=== PATIENT | male | born 1940 | race Caucasian/White ===

== ENCOUNTER → 2017-01-13 | Outpatient (CLI) | payer MEDICARE ==
[2017-01-13 11:12] LABS: CH 32.8; CHCM 34.9; HDW 2.62; HGB 15.5 gm/dL (13.0-17.5); MCH 32.6 pg (25.0-35.0); MCHC 34.5 g/dL (31.0-37.0); MCV 94.5 fL (80.0-100.0); Mean Platelet Volume 7.6; RBC 4.76 m/uL (4.30-5.90); RDW 14.1 % (11.5-15.5); WBC 6.9 k/uL (3.8-10.6)
[2017-01-13 12:44] LABS: Erythrocyte Sedimentation Rate 6 mm/hr (0-15)
[2017-01-17 13:37] LABS: Lysozyme, Serum or Body Fluid 6.6 mcg/mL (5.0-11.0)
== END ==
LOC: LABWHC1 10:46
PROVIDERS: ATTEND Ophthalmology
DX: H15.011 Anterior scleritis, right eye (principal)
CPT/HCPCS: 36415; 82164; 85027; 85549; 85652; 86140

== ENCOUNTER 2017-01-26 17:49 | Emergency (ER) | payer MEDICARE ==
[2017-01-26 18:00] VITALS: BP 173/85; PULSE 80; RESP 20; TEMP 98.4
[2017-01-26] MEDS ORDERED: DIPH,PERTUS(ACELL)TETVAC-LF 0.5 ML VIAL IM ONE (19:04)
[2017-01-26] MEDS ORDERED: AMOXIC-POT CLAV 875MG STARTER 2 EACH TABLET PO STA (19:04)
--- NOTE | 2017-01-26 19:09 | ED ---
Animal Bite HPI - General Chief Complaint: Animal Bite Stated Complaint: Dog Bite Time Seen by Provider: 01/26/17 18:40 Source: patient, RN notes reviewed, old records reviewed Mode of arrival: ambulatory Limitations: no limitations - History of Present Illness Initial Comments: This is a 76-year-old male presenting to the emergency department with chief complaint of a dog bite of his own dog in the right hand. Patient reports it's taken the dog to get vaccinations and the dog was upset and bit him. Patient reports that he has full range of motion of his hand. They state that he had this happen similarly and he had a severe hand infection when he had to be admitted to the hospital for 5 days. Patient reports at that time he waited before being seen. Patient states he does not know the status of his tetanus vaccination. He denies any fever or chills or other associated symptoms. Patient reports he does have full range of motion of the hand. - Related Data Previous Rx's Medication Instructions Recorded Amoxic-Pot Clav 875-125Mg 1 tab PO Q12HR #20 tablet 01/26/17 [Augmentin 875-125] Allergies Allergy/AdvReac Type Severity Reaction Status Date / Time No Known Allergies Allergy Verified 01/26/17 18:00 Review of Systems ROS Statement: Those systems with pertinent positive or pertinent negative responses have been documented in the HPI. ROS Other: All systems not noted in ROS Statement are negative. Past Medical History Past Medical History: No Reported History History of Any Multi-Drug Resistant Organisms: None Reported Past Surgical History: No Surgical Hx Reported Smoking Status: Never smoker Past Alcohol Use History: Rare Past Drug Use History: None Reported General Exam - General Exam Comments Initial Comments: 76-year-old male. No acute distress. Limitations: no limitations General appearance: alert, in no apparent distress Head exam: Present: atraumatic, normocephalic, normal inspection Eye exam: Present: normal appearance, PERRL, EOMI. Absent: scleral icterus, conjunctival injection, periorbital swelling ENT exam: Present: normal exam, mucous membranes moist Neck exam: Present: normal inspection. Absent: tenderness, meningismus, lymphadenopathy Respiratory exam: Present: normal lung sounds bilaterally. Absent: respiratory distress, wheezes, rales, rhonchi, stridor Cardiovascular Exam: Present: regular rate, normal rhythm, normal heart sounds. Absent: systolic murmur, diastolic murmur, rubs, gallop, clicks GI/Abdominal exam: Present: soft, normal bowel sounds. Absent: distended, tenderness, guarding, rebound, rigid Extremities exam: Present: normal inspection, full ROM, normal capillary refill , other (2 cm laceration over the palm of the right hand over the fifth metacarpal.). Absent: tenderness, pedal edema, joint swelling, calf tenderness Back exam: Present: normal inspection Neurological exam: Present: alert, oriented X3, CN II-XII intact Psychiatric exam: Present: normal affect, normal mood Skin exam: Present: warm, dry, intact, normal color. Absent: rash Course Vital Signs 01/26/17 01/26/17 17:57 19:47 Temperature 98.4 F 98.4 F Pulse Rate 80 80 Respiratory 20 20 Rate Blood Pressure 173/85 173/85 O2 Sat by Pulse 98 98 Oximetry Procedures - Laceration Laceration #1 Site: hand (right palm) Size (cm): 1 Description: linear Depth: simple, single layer Anesthetic Used: lidocaine 1% Anesthesia Technique: local infiltration Amount (mls): 3 Pre-repair: wound explored, irrigated extensively Type of Sutures: nylon Size of Sutures: 5-0 Number of Sutures: 2 Technique: simple, interrupted Patient Tolerated Procedure: well, no complications Medical Decision Making - Medical Decision Making This is a 76-year-old male presenting to the emergency department with chief complaint of a dog bite of his own dog in the right hand. Patient reports it's taken the dog to get vaccinations and the dog was upset and bit him. Patient reports that he has full range of motion of his hand. They state that he had this happen similarly and he had a severe hand infection when he had to be admitted to the hospital for 5 days. Patient reports at that time he waited before being seen. Patient states he does not know the status of his tetanus vaccination. He denies any fever or chills or other associated symptoms. Patient hand was soaked with normal saline, Betadine and soap. Afterwards 2 L of normal saline was used to irrigate the wound. Patient did receive 2 loosely tied superficial sutures to keep the wound closed. There were evidence of fatty tissue exposure and the laceration. Patient was given a bacitracin and acrylics stressing. Patient was given updated tetanus shot and Augmentin starter pack. Discussed the importance of taking the antibiotic. Patient understands to monitor for any signs of infection and swelling and drainage. Patient agrees to treatment plan will comply. Return parameters were discussed. Disposition Clinical Impression: Dog bite of right hand Disposition: HOME SELF-CARE Condition: Good Instructions: Animal Bite (ED) Additional Instructions: Patient denies to apply ice over the area. Monitor for any signs of infection including redness swelling and drainage. Patient needs to return to have sutures removed in approximately 7 days. Please leave wound covered for the first 24-48 hours and then leave open to air after that time. Please use clean soap and water to clean the suture area to prevent scabbing over the top of your sutures. Please watch for any signs of infection which may include but not limited to increased pain, swelling, redness, fever or chills. Please return to the emergency room if any signs of infection do occur. Please return to the emergency room for any other concerns or complications. Prescriptions: Amoxic-Pot Clav 875-125Mg [Augmentin 875-125] 1 tab PO Q12HR #20 tablet Referrals: Isaac Quesada DO [Primary Care Provider] - 1-2 days Time of Disposition: 19:33
== END 2017-01-26 19:47 | disposition home or self-care (01) ==
LOC: EC 17:49
DX: S61.451A Open bite of right hand, initial encounter (principal); Z23 Encounter for immunization; W54.0XXA Bitten by dog, initial encounter
CPT/HCPCS: 12001; 90471; 90715; 99283

== ENCOUNTER 2018-12-04 20:47 | Inpatient (IN) | payer MEDICARE ==
--- NOTE | 2018-12-04 21:05 | ED ---
Chest Pain HPI - General Chief Complaint: Chest Pain Stated Complaint: Chest pains Time Seen by Provider: 12/04/18 21:05 Source: patient Mode of arrival: wheelchair Limitations: no limitations - History of Present Illness Initial Comments: Corey is a pleasant 78-year-old gentleman presents to the emergency department today for evaluation of left I did pressure-like chest pain. Patient has no cardiac history no history of hypertension hyperlipidemia or smoking. 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 Patient reports that this evening on his way home from work he did eat [employer] and then returned home and ate a little bit of soup with his . He reports that shortly after he began having a pressure-like pain in his left chest. Initially thought it was indigestion however the pain persisted and became quite uncomfortable given his advanced age he he decided to come to the emergency department for evaluation. Patient denies any associated lightheadedness diaphoresis or shortness of breath. - Related Data Home Medications Medication Instructions Recorded Confirmed Hydrochlorothiazide [Hydrodiuril] 12.5 mg PO DAILY 12/04/18 12/05/18 Allergies Allergy/AdvReac Type Severity Reaction Status Date / Time No Known Allergies Allergy Verified 12/05/18 01:42 Review of Systems ROS Statement: Those systems with pertinent positive or pertinent negative responses have been documented in the HPI. ROS Other: All systems not noted in ROS Statement are negative. EKG Findings - EKG Comments: EKG Findings:: EKG was obtained at 2058, rate is 82 rhythm is sinus there is a 40 axis, there are normal intervals, LA is 172 QRS is 104 QTc is 453 there are no acute ST elevations or depressions there is no evidence of acute ischemia or infarction. Past Medical History Past Medical History: No Reported History History of Any Multi-Drug Resistant Organisms: None Reported Past Surgical History: No Surgical Hx Reported Past Psychological History: No Psychological Hx Reported Smoking Status: Never smoker Past Alcohol Use History: Rare Past Drug Use History: None Reported - Past Family History Mother Family Medical History: Diabetes Mellitus Father Family Medical History: Congestive Heart Failure (CHF) General Exam - General Exam Comments Initial Comments: Physical Exam GENERAL: Patient is well-developed and well-nourished. Patient is nontoxic and well- hydrated and is in no distress. HENT: Normocephalic, Atraumatic. EYES: PERRL, EOMI PULMONARY: Unlabored respirations. No audible rales rhonchi or wheezing was noted. CARDIOVASCULAR: There is a regular rate and rhythm without any murmurs gallops or rubs. Warm and well perfused extremities, radial pulses present and equal bilaterally ABDOMEN: Soft and nontender with normal bowel sounds. SKIN: Skin is clear with no lesions or rashes and otherwise unremarkable. : Deferred NEUROLOGIC: Patient is alert and oriented x3. Moving all extremities spontaneously MUSCULOSKELETAL: Normal extremities with adequate strength and full range of motion. No lower extremity swelling or edema. No calf tenderness. PSYCHIATRIC: Normal psychiatric evaluation. Limitations: no limitations Limitations: no limitations Course Vital Signs 12/04/18 12/04/18 12/05/18 20:51 23:04 00:35 Temperature 98.3 F Pulse Rate 82 77 86 Respiratory 20 16 16 Rate Blood Pressure 157/89 145/91 150/78 O2 Sat by Pulse 98 96 98 Oximetry 12/05/18 01:16 Temperature 98.2 F Pulse Rate 80 Respiratory 16 Rate Blood Pressure 148/89 O2 Sat by Pulse 98 Oximetry Chest Pain MDM - MDM The patient was seen and evaluated history is obtained from the patient review of medical record This is an 78-year-old male presenting with pressure-like chest pain with no cardiac history Labs and imaging were obtained An EKG is nonischemic chest x-ray no acute findings labs were normal there is no elevation of troponin. HEART Score 4 Plan to admit the patient for further observation of chest pain and evaluation by cardiology. Patient were updated and are agreeable. Admission orders were placed. Disposition Clinical Impression: Chest pain Disposition: ADMITTED IP TO THIS HOSP Condition: Stable
[2018-12-04 21:45] LABS: Basophils # (A) 0.1 k/uL (0-0.2); Basophils % (A) 1 %; Eosinophils # (A) 0.1 k/uL (0-0.7); Eosinophils % (A) 2 %; HCT 39.1 % (39.0-53.0); HGB 13.8 gm/dL (13.0-17.5); Lymphocytes # (A) 1.3 k/uL (1.0-4.8); Lymphocytes % (A) 21 %; MCH 32.5 pg (25.0-35.0); MCHC 35.3 g/dL (31.0-37.0); MCV 92.3 fL (80.0-100.0); Mean Platelet Volume 7.8; Monocytes # (A) 0.5 k/uL (0-1.0); Monocytes % (A) 8 %; Neutrophils % (A) 65 %; Platelet Count 201 k/uL (150-450); RBC 4.24 m/uL (4.30-5.90); RDW 13.6 % (11.5-15.5); WBC 6.1 k/uL (3.8-10.6)
[2018-12-04 21:55] LABS: ALT 37 U/L (21-72); AST 27 U/L (17-59); Albumin 3.6 g/dL (3.5-5.0); Alkaline Phosphatase 78 U/L (38-126); Anion Gap 7 mmol/L; Blood Urea Nitrogen 15 mg/dL (9-20); Calcium 9.1 mg/dL (8.4-10.2); Carbon Dioxide 25 mmol/L (22-30); Chloride 109 mmol/L (98-107); Glucose 124 mg/dL (74-99); Magnesium 1.8 mg/dL (1.6-2.3); Potassium 3.5 mmol/L (3.5-5.1); Sodium 141 mmol/L (137-145); Total Bilirubin 0.7 mg/dL (0.2-1.3); Total Protein 5.9 g/dL (6.3-8.2)
[2018-12-04 22:00] LABS: Prothrombin Time 10.9 sec (9.0-12.0)
[2018-12-04 22:01] LABS: Partial Thromboplastin Time 27.8 sec (22.0-30.0)
--- NOTE | 2018-12-04 22:12 | XR ---
EXAMINATION TYPE: XR chest 2V DATE OF EXAM: 12/04/2018 COMPARISON: 05/16/2015 HISTORY: 78-year-old male with chest pain TECHNIQUE: PA and lateral views FINDINGS: The heart is normal size. Aorta and pulmonary vasculature within normal limits. Mild interstitial pro minence has a chronic appearance. No consolidation or pleural effusion. IMPRESSION: Chronic changes without acute cardiopulmonary process.
[2018-12-04] MEDS ORDERED: NITROGLYCERIN SL TABS 0.4 MG TAB SUBLINGUAL PRN (22:49)
[2018-12-05] MEDS ORDERED: MAG HYDROX/AL HYDROX/SIMETH 30 ML, HYOSCYAMINE ELIXIR 10 ML, CIMETIDINE HCL 300 MG, LID... PO STA ×4 (00:21)
[2018-12-05 01:20] LABS: Cholesterol 135 mg/dL (<200); HDL Cholesterol 32 mg/dL (40-60); LDL Cholesterol,Calculated 74 mg/dL (0-99); Triglycerides 144 mg/dL (<150)
[2018-12-05] MEDS ORDERED: ALPRAZolam 0.25 MG TAB PO PRN (08:11)
[2018-12-05] MEDS ORDERED: NITROGLYCERIN SL TABS 0.4 MG TAB SUBLINGUAL PRN (08:11)
[2018-12-05] MEDS ORDERED: ALPRAZolam 0.5 MG TAB PO PRN (08:11)
[2018-12-05] MEDS ORDERED: SODIUM CHLORIDE 0.9% 1,000 ML in EMPTY BAG 1 BAG IV ONE (08:11)
[2018-12-05] MEDS: ASPIRIN 325 MG TAB PO SCH ×2 (08:23→08:43)
[2018-12-05] MEDS: METOPROLOL TARTRATE 12.5 MG TAB PO SCH ×2 (08:43→20:05)
[2018-12-05] MEDS: ISOSORBIDE MONONITRATE ER 30 MG TAB.ER.24H PO SCH (08:43)
--- NOTE | 2018-12-05 12:41 | CONS ---
CONSULTATION HISTORY: Corey Rodrigues is an 78-year-old gentleman with no significant past medical history that presented to hospital complaining of chest pain. His history is significant for hypertension. He describes it as a precordial chest pressure, moderate to severe intensity at rest, unrelated to exertion, and associated with diaphoresis. This started after he had a meal. Normally has chest discomfort that is relieved with burping, this time it was not. It was associated with some diaphoresis and mild shortness of breath. He came to the ER. The pain lasted for about half an hour and then resolved. EKG did not reveal ischemic changes and cardiac enzymes have been negative. At the time of my evaluation this morning, he is pain-free and hemodynamically stable. 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 PAST MEDICAL HISTORY: Significant for hypertension. MEDICATIONS: Hydrochlorothiazide. ALLERGIES: No known drug allergies. FAMILY HISTORY: Negative for premature coronary artery disease. SOCIAL HISTORY: Negative for current smoking, ETOH abuse or drug abuse. REVIEW OF SYSTEMS: HEENT: Unremarkable. CARDIAC: As described above. RESPIRATORY: Negative. GI: Negative. : Negative. ALLERGY/IMMUNOLOGY/SKIN: Unremarkable. MUSCULOSKELETAL: Significant for arthritis. PSYCHOSOCIAL: Negative. ENDOCRINE: Unremarkable. HEMATOLOGIC: Negative. CONSTITUTIONAL: Negative. ONCOLOGICAL: Negative. The rest of the systems review is not relevant. EXAM: Comfortable at rest. Vital signs are stable. There is no jugular venous distention. Carotid upstroke is normal. There is no bruit. Chest exam reveals good air entry bilaterally. Heart exam reveals first and second heart sounds. No gallop. No murmur. No rub. Abdomen is soft, nontender. Exam of extremities did not reveal any edema. Peripheral pulses are felt. LABS: EKG shows sinus rhythm, normal axis, normal intervals. His hemoglobin is 13.8, platelet count is 201,000. Creatinine is 0.7. Two sets of troponins are negative. LDL cholesterol is 74. ASSESSMENT: Unstable angina. PLAN: I advised the patient to undergo cardiac catheterization for further evaluation. He had been explained of risks, benefits and alternatives, understood and accepted. MMODL / IJN: [id number] /
--- NOTE | 2018-12-05 14:09 | P.HPIM ---
History of Present Illness H&P Date: 12/05/18 Chief Complaint: chest pain 78-year-old male patient with history of hypertension presented to ED with complaint of chest pain which was mainly precordial chest pressure with a ssociated diaphoresis and shortness of breath; Patient relates that he was resting at the time pain started and had just finished eating his meal. According to patient normally when he gets chest discomfort it is usually relieved by burping; patient decided to come to ED because pain persisted after half hour Patient's workup in ED with an EKG was unremarkable; chest x-ray was negative for any acute process; serum troponin remained in normal range; patient has a heart score of 4 and is admitted for observation and further cardiology evaluation Review of Systems Constitutional: Denies chills, Denies fever Eyes: denies blurred vision, denies loss of vision Ears, nose, mouth and throat: Denies headache Cardiovascular: Reports chest pain, Reports shortness of breath Respiratory: Denies cough with sputum Gastrointestinal: Denies abdominal pain, Denies nausea, Denies vomiting Neurological: Denies confusion, Denies gait dysfunction Endocrine: Denies cold intolerance, Denies heat intolerance Past Medical History Past Medical History: No Reported History History of Any Multi-Drug Resistant Organisms: None Reported Past Surgical History: No Surgical Hx Reported Past Psychological History: No Psychological Hx Reported Smoking Status: Never smoker Past Alcohol Use History: Rare Past Drug Use History: None Reported - Past Family History Mother Family Medical History: Diabetes Mellitus Father Family Medical History: Congestive Heart Failure (CHF) Medications and Allergies Home Medications Medication Instructions Recorded Confirmed Type Hydrochlorothiazide [Hydrodiuril] 12.5 mg PO DAILY 12/04/18 12/05/18 History Allergies Allergy/AdvReac Type Severity Reaction Status Date / Time No Known Allergies Allergy Verified 12/05/18 01:42 Physical Exam Vitals: Vital Signs Temp Pulse Pulse Resp BP BP Pulse Ox 12/05/18 08:00 98.1 F 79 18 123/70 96 12/05/18 02:45 16 12/05/18 01:38 97.5 F L 72 16 138/77 97 12/05/18 01:16 98.2 F 80 16 148/89 98 12/05/18 00:35 86 16 150/78 98 12/04/18 23:04 77 16 145/91 96 12/04/18 20:51 98.3 F 82 20 157/89 98 Intake and Output 12/04/18 12/05/18 12/05/18 22:59 06:59 14:59 Other: Voiding Method Toilet # Voids 1 Weight 86.183 kg - Constitutional General appearance: Present: average body habitus, cooperative, no acute distress - EENT Eyes: Present: anicteric sclerae, EOMI, PERRLA, normal appearance ENT: Present: hearing grossly normal, normal oropharynx Ears: bilateral: normal - Neck Neck: Present: normal ROM. Absent: lymphadenopathy, rigidity, thyromegaly Carotids: negative: bruit present Thyroid: bilateral: normal size, negative: enlarged, nodule - Respiratory Respiratory: bilateral: CTA, negative: rales, rhonchi, wheezing - Cardiovascular Rhythm: regular Heart sounds: normal: S1, S2 Abnormal Heart Sounds: Absent: systolic murmur, diastolic murmur - Gastrointestinal General gastrointestinal: Present: normal bowel sounds, soft. Absent: distended, organomegaly, tenderness - Genitourinary Genitourinary Comment(s): deferred - Integumentary Integumentary: Present: normal turgor. Absent: jaundiced, rash, ulcer - Neurologic Neurologic: Present: CNII-XII intact. Absent: focal deficits - Musculoskeletal Musculoskeletal: Present: gait normal, strength equal bilaterally - Psychiatric Psychiatric: Present: A&O x's 3, appropriate affect, intact judgment & insight Results CBC & Chem 7: 12/04/18 21:00 12/04/18 21:00 Labs: Abnormal Lab Results - Last 24 Hours (Table) 12/04/18 12/04/18 12/04/18 Range/Units 21:00 21:00 21:00 RBC 4.24 L (4.30-5.90) m/uL Chloride 109 H (98-107) mmol/L Glucose 124 H (74-99) mg/dL Total Protein 5.9 L (6.3-8.2) g/dL HDL Cholesterol 32 L (40-60) mg/dL Thrombosis Risk Factor Assmnt - Choose All That Apply Each Risk Factor Represents 3 Points: Age 75 years or older Thrombosis Risk Factor Assessment Total Risk Factor Score: 3 Thrombosis Risk Factor Assessment Level: Moderate Risk Assessment and Plan Assessment: 1. Chest pain rule out acute coronary syndrome/unstable angina - Patient will be admitted to cardiac telemetry for close observation - We will monitor EKG and trend troponin - start patient on aspirin, beta blockers and sublingual nitroglycerin - ordered a 2-D echocardiogram for left ventricular function - Consult cardiology for further recommendations 2. Uncontrolled hypertension - Patient takes hydrochlorothiazide 12.5 mg daily at home; patient is started on beta blockers for unstable angina - We will hold off on hydrochlorothiazide and monitor blood pressure closely and escalate beta preethi therapy if blood pressure remains elevated 3. DVT prophylaxis; SCDs CODE STATUS; full code Time with Patient: Greater than 30
[2018-12-06] MEDS ORDERED: ATORVASTATIN 80 MG TAB PO ONE (06:00)
[2018-12-06] MEDS ORDERED: ASPIRIN 325 MG TAB PO ONE (06:00)
[2018-12-06] MEDS: ISOSORBIDE MONONITRATE ER 30 MG TAB.ER.24H PO SCH (06:26)
[2018-12-06] MEDS: METOPROLOL TARTRATE 12.5 MG TAB PO SCH (06:27)
[2018-12-06] MEDS ORDERED: HYDROcodone/APAP 5-325MG 1 EACH TAB PO PRN ×2 (06:36→21:00)
[2018-12-06 07:08] LABS: Basophils % (A) 1 %; Eosinophils # (A) 0.1 k/uL (0-0.7); Eosinophils % (A) 2 %; HCT 35.5 % (39.0-53.0); HGB 12.2 gm/dL (13.0-17.5); Lymphocytes # (A) 1.6 k/uL (1.0-4.8); Lymphocytes % (A) 20 %; MCH 32.2 pg (25.0-35.0); MCHC 34.5 g/dL (31.0-37.0); MCV 93.3 fL (80.0-100.0); Monocytes # (A) 0.6 k/uL (0-1.0); Monocytes % (A) 7 %; Neutrophils # (A) 5.4 k/uL (1.3-7.7); Neutrophils % (A) 68 %; Platelet Count 186 k/uL (150-450); RDW 13.8 % (11.5-15.5); WBC 7.9 k/uL (3.8-10.6)
[2018-12-06 07:28] LABS: Anion Gap 4 mmol/L; Blood Urea Nitrogen 20 mg/dL (9-20); Calcium 8.2 mg/dL (8.4-10.2); Carbon Dioxide 28 mmol/L (22-30); Chloride 108 mmol/L (98-107); Glucose 95 mg/dL (74-99); Potassium 3.7 mmol/L (3.5-5.1); Sodium 140 mmol/L (137-145)
[2018-12-06] MEDS ORDERED: HYDROCHLOROTHIAZIDE 12.5 MG CAP PO SCH (09:00)
[2018-12-06] MEDS ORDERED: LIDOCAINE 1% INJ 10MG/ML (20 ML MDV) SQ ONE (09:17)
--- NOTE | 2018-12-06 09:58 | CC ---
CARDIAC CATHETERIZATION REPORT INDICATION: Unstable angina. PROCEDURE NOTE: After obtaining informed consent, left heart catheterization, coronary angiogram were performed via the right femoral artery using standard Maldonado catheters. Patient tolerated the procedure well without any obvious immediate complications. Patient received moderate conscious sedation. Total sedation time was 15 minutes. FINDINGS: 1. HEMODYNAMICS: Left ventricular end-diastolic pressure is 12 to 14 mm. There is no significant gradient across aortic valve. 2. LEFT VENTRICULOGRAM: Left ventriculogram is not performed. 3. ANGIOGRAPHIC DATA: Left Main Coronary Artery: Left main coronary artery is a normal-sized vessel and is free of stenosis. Divides into left anterior descending coronary artery and circumflex coronary artery. LAD shows a moderate area of stenosis in its midportion at its worst it seems to be a 70% eccentric lesion. Circumflex coronary artery and its branches is free of significant stenosis. Right coronary artery is a dominant vessel and is free of significant disease. 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 PLAN: Patient will undergo stent of the LAD. MMODL / IJN: [id number] /
[2018-12-06] MEDS ORDERED: IOPAMIDOL-370 100ML BTL INJ ONE ×2 (10:14→10:23)
[2018-12-06] MEDS ORDERED: BIVALIRUDIN BOLUS 250 MG/50 ML IV ONE (10:15)
[2018-12-06] MEDS ORDERED: BIVALIRUDIN 250 MG in SODIUM CHLORIDE 0.9% 50 ML IV ONE (10:16)
[2018-12-06] MEDS ORDERED: IV FLUID CONTINUATION 700 ML IV ONE (10:16)
[2018-12-06] MEDS ORDERED: niCARdipine Syringe (1,000 mcg/10 mL) INTRACORON ONE (10:20)
[2018-12-06] MEDS ORDERED: NITROGLYCERIN SL TABS 0.4 MG TAB SUBLINGUAL PRN (10:27)
[2018-12-06] MEDS ORDERED: ATROPINE SULFATE 0.1 MG/ML 10ML SYRINGE IV PRN (10:27)
[2018-12-06] MEDS ORDERED: ZOLPIDEM 5 MG TAB PO PRN (10:27)
[2018-12-06] MEDS ORDERED: RX INFO: IV CONTRAST WAS GIVEN 1 EACH MISC MISCELLANE PRN (10:27)
[2018-12-06] MEDS ORDERED: MAG HYDROX/AL HYDROX/SIMETH 30 ML CUP PO PRN (10:27)
[2018-12-06] MEDS ORDERED: TICAGRELOR 90 MG TAB PO ONE (10:38)
--- NOTE | 2018-12-06 11:58 | PTCA ---
PERCUTANEOUSTRANS CORORONARY ANGIOGRAPHY DATE OF SERVICE: 12/06/2018 PROCEDURE: PTCA and stenting of mid LAD with a drug-eluting stent. PERFORMED BY: Dr. Ryan Grace. Moderate conscious sedation time was 22 minutes. Patient was administered Versed. His oxygen saturation, hemodynamics and EKG were monitored closely. CLINICAL INFORMATION: Mr. Corey Rodrigues is a gentleman with a history of hypertension who came into the hospital with symptoms strongly suggestive of angina. He was seen and evaluated by Dr. Pena who performed a cardiac cath today which revealed a 70% mid LAD lesion. There was a long area of disease with sluggish flow and the disease started after the diagonal branch and ended at the third septal branch. It was a long lesion with sluggish flow, eccentric best seen in LEILA cranial projection and the narrowing was at least 70%. In view of his symptoms with sluggish flow and 70% lesion, he was advised PCI that was performed in the same setting. PROCEDURE NOTE: The existing 6-Greek introducer in the right femoral artery was used to perform the procedure. A JL3.5 guide catheter was used to cannulate the left coronary artery. A run-through wire was used to cross the lesion. Without predilatation a 23 mm long 3.5 caliber Xience stent was deployed at 13 atmospheres. Patient had chest pain and very subtle anterior ST prominence. Excellent angiographic result was achieved. He received 180 mg of Brilinta. He also received Angiomax bolus and infusion. Excellent result was achieved. Angio-Seal device was used to secure hemostasis and he was sent to the room in a stable condition. Results were discussed with the patient and family. MMODL / IJN: [id number] /
[2018-12-06] MEDS ORDERED: ONDANSETRON 4 MG/2 ML VIAL ONE (12:49)
--- NOTE | 2018-12-06 12:53 | ECHOF ---
Referral Reason:chest pain MEASUREMENTS -------- HEIGHT: 172.7 cm WEIGHT: 86.2 kg BP: 105/53 IVSd: 1.1 cm (0.6 - 1.1) LVIDd: 3.7 cm (3.9 - 5.3) LVPWd: 1.2 cm (0.6 - 1.1) IVSs: 1.7 cm LVIDs: 1.9 cm LVPWs: 2.0 cm Ao Diam: 3.9 cm (2.0 - 3.7) AV Cusp: 2.5 cm (1.5 - 2.6) LA Diam: 2.9 cm (2.7 - 3.8) MV EXCURSION: 20.130 mm (> 18.000) MV EF SLOPE: 106 mm/s (70 - 150) EPSS: 0.5 cm MV E Thomas: 0.59 m/s MV DecT: 270 ms MV A Thomas: 0.56 m/s MV E/A Ratio: 1.06 RAP: 5.00 mmHg RVSP: 8.99 mmHg FINDINGS -------- Sinus rhythm. This was a technically difficult study with suboptimal views. The left ventricular size is normal. There is mild concentric left ventricular hypertrophy. Overa ll left ventricular systolic function is low-normal with, an EF between 50 - 55 %. The right ventricle is normal in size. The left atrial size is normal. The right atrial size is normal. Lumason used Interatrial and interventricular septum intact. The aortic valve is trileaflet and appears structurally normal. There is trace mitral regurgitation. Trace tricuspid regurgitation present. The right ventricular systolic pressure, as measured by Dopp ler, is 8.99mmHg. Pulmonic valve appears structurally normal. The aortic root is mildy dilated at 3.9 cm IVC Not well visulized. There is no pericardial effusion. CONCLUSIONS -------- 1. Sinus rhythm. 2. This was a technically difficult study with suboptimal views. 3. The left ventricular size is normal. 4. There is mild concentric left ventricular hypertrophy. 5. Overall left ventricular systolic function is low-normal with, an EF between 50 - 55 %. 6. The right ventricle is normal in size. 7. The left atrial size is normal. 8. The right atrial size is normal. 9. Lumason used 10. Interatrial and interventricular septum intact. 11. The aortic valve is trileaflet and appears structurally normal. 12. There is trace mitral regurgitation. 13. Trace tricuspid regurgitation present. 14. The right ventricular systolic pressure, as measured by Doppler, is 8.99mmHg. 15. Pulmonic valve appears structurally normal. 16. The aortic root is mildy dilated at 3.9 cm. 17. IVC Not well visulized. 18. There is no pericardial effusion. HOSIERY REPAIRER: Chaya Coronado RDCS
[2018-12-06] MEDS: SODIUM CHLORIDE 0.9% 1,000 ML IV SCH ×2 (15:05→23:35)
[2018-12-06 15:27] VITALS: RESP 18
--- NOTE | 2018-12-06 19:44 | P.PN ---
Subjective 78-year-old male patient with history of hypertension presented to ED with complaint of chest pain which was mainly precordial chest pressure with a ssociated diaphoresis and shortness of breath; Patient relates that he was resting at the time pain started and had just finished eating his meal. According to patient normally when he gets chest discomfort it is usually relieved by burping; patient decided to come to ED because pain persisted after half hour Patient's workup in ED with an EKG was unremarkable; chest x-ray was negative for any acute process; serum troponin remained in normal range; patient has a heart score of 4 and is admitted for observation and further cardiology evaluation 12/06/2018 pt presents with s/s of CAD, he underwent cardiac cath with stent placement for LAD , as it was 70& occluded pt is seen in the extended stay unit , he was doing fine with no chest pain or dyspnea, , no change in urine or bowel habit , no nausea or vomiting , no abd pain , no feverc cardiology team are following the pt closely vitals stable and labs were reviewed Objective - Vital Signs Vital signs: Vital Signs Temp 96.9 F L 12/06/18 15:20 Pulse 63 12/06/18 15:20 Resp 18 12/06/18 15:20 BP 95/56 12/06/18 15:20 Pulse Ox 97 12/06/18 15:20 Intake & Output 12/06/18 12/06/18 12/07/18 06:59 18:59 06:59 Intake Total 1336.3 Output Total 500 Balance 836.3 Intake: IV 616.3 Sodium Chloride 0.9% 1, 0 000 ml @ 100 mls/hr IV . Q10H [facility] Rx#:[id number] Oral 720 Output: Urine 500 Other: Voiding Method Toilet Toilet # Voids 1 - Exam GENERAL: The patient is alert and oriented x3, not in any acute distress. Well developed, well nourished. HEENT: Pupils are round and equally reacting to light. EOMI. No scleral icterus. No conjunctival pallor. Normocephalic, atraumatic. No pharyngeal erythema. No thyromegaly. CARDIOVASCULAR: S1 and S2 present. No murmurs, rubs, or gallops. PULMONARY: Chest is clear to auscultation, no wheezing or crackles. ABDOMEN: Soft, nontender, nondistended, normoactive bowel sounds. No palpable organomegaly. MUSCULOSKELETAL: No joint swelling or deformity. EXTREMITIES: No cyanosis, clubbing, or pedal edema. NEUROLOGICAL: Gross neurological examination did not reveal any focal deficits. SKIN: No rashes. - Labs CBC & Chem 7: 12/06/18 06:34 12/06/18 06:34 Labs: Abnormal Lab Results - Last 24 Hours (Table) 12/06/18 12/06/18 Range/Units 06:34 06:34 RBC 3.80 L (4.30-5.90) m/uL Hgb 12.2 L (13.0-17.5) gm/dL Hct 35.5 L (39.0-53.0) % Chloride 108 H (98-107) mmol/L Calcium 8.2 L (8.4-10.2) mg/dL Assessment and Plan Assessment: coronary artery disease , status post cardiac cath and stent placement of LAD hyperlipidemia hypertension Plan: this is a pleasant 78 yo M who present with CAD, s/p cath and stent placement of LAD, cardology team are following the pt . continue with asprin and brilinta, statin and metoprolol , cardiology team are following the pt
[2018-12-06] MEDS ORDERED: ATORVASTATIN 80 MG TAB PO SCH (21:00)
[2018-12-07 05:47] VITALS: PULSE 76
[2018-12-07 07:02] LABS: Basophils % (A) 0 %; Eosinophils # (A) 0.1 k/uL (0-0.7); Eosinophils % (A) 1 %; HCT 38.7 % (39.0-53.0); HGB 13.3 gm/dL (13.0-17.5); Lymphocytes # (A) 1.4 k/uL (1.0-4.8); Lymphocytes % (A) 17 %; MCH 32.1 pg (25.0-35.0); MCHC 34.5 g/dL (31.0-37.0); MCV 93.3 fL (80.0-100.0); Mean Platelet Volume 8.5; Monocytes # (A) 0.7 k/uL (0-1.0); Monocytes % (A) 8 %; Neutrophils # (A) 5.7 k/uL (1.3-7.7); Neutrophils % (A) 71 %; Platelet Count 189 k/uL (150-450); RBC 4.15 m/uL (4.30-5.90); RDW 13.5 % (11.5-15.5)
[2018-12-07 07:20] LABS: Anion Gap 5 mmol/L; Blood Urea Nitrogen 17 mg/dL (9-20); Calcium 8.4 mg/dL (8.4-10.2); Carbon Dioxide 26 mmol/L (22-30); Chloride 110 mmol/L (98-107); Glucose 92 mg/dL (74-99); Potassium 3.8 mmol/L (3.5-5.1); Sodium 141 mmol/L (137-145)
[2018-12-07 07:30] VITALS: BP 133/77; TEMP 98
[2018-12-07] MEDS ORDERED: TICAGRELOR 90 MG TAB PO SCH (09:00)
[2018-12-07] MEDS ORDERED: METOPROLOL TARTRATE 12.5 MG TAB PO SCH (09:00)
[2018-12-07] MEDS ORDERED: ASPIRIN 81 MG PO SCH (09:00)
[2018-12-07 09:46] VITALS: BMI 29.4
--- NOTE | 2018-12-07 13:00 | P.DS ---
Providers Date of admission: 12/06/18 14:53 Attending physician: Cj Santizo Consults: 12/04/18 22:49 Consult Physician Urgent Consulting Provider: Yoan Galarza Consult Reason/Comments: chest pain Do you want consulting provider notified?: Yes, Notify in am 12/06/18 10:27 Consult Physician Routine Consulting Provider: Yoan Galarza Consult Reason/Comments: Post Interventional patient Do you want consulting provider notified?: Already Contacted Primary care physician: Isaac Quesada [place] [facility] Course: Diagnoses: coronary artery disease , status post cardiac cath and stent placement of LAD hyperlipidemia hypertension Hospital course: 78-year-old male patient with history of hypertension presented to ED with complaint of chest pain. Patient was found to have cardiac disease with 70% stenosis in the mid LAD. Is a status post stenting of his LAD by cardiology team. After the procedure, patient was asymptomatic and he was chest pain-free. No other symptoms. No chest pain or dyspnea. No change in urine or bowel habits. No nausea vomiting. No fever. Patient has been cleared by cardiology team for discharge. Patient felt his ready to go home. Problems and management plan were discussed with the patient in details and he verbalized understanding and acceptance Patient was found stable and can be discharged however he needs follow-up as an outpatient. Patient was instructed needs to be on aspirin and Brilinta for several months. Risks of not adherence explained for the patient and he verbalized understanding and acceptance He was instructed to follow up with his PCP in one week. He agrees with the appointments made for him with his PCP and pier hand has said he will follow- up Gen: patient is a AAOx3, no distress CVS: S1-S2, RRR, no murmur Lungs: B/L CTA, no wheezing Abdomen: soft, no distention, no tenderness, positive bowel sounds Extremity: no leg edema or induration Time spent more than 35 minutes Patient Condition at Discharge: Stable Plan - Discharge Summary New Discharge Prescriptions: New Aspirin 81 mg PO DAILY #30 chew Ticagrelor [Brilinta] 90 mg PO BID #60 tab Atorvastatin [Lipitor] 80 mg PO HS #30 tab Metoprolol Tartrate [Lopressor] 12.5 mg PO DAILY #30 tab Nitroglycerin Sl Tabs [Nitrostat] 0.4 mg SUBLINGUAL Q5M PRN #25 tab PRN Reason: Chest Pain No Action Hydrochlorothiazide [Hydrodiuril] 12.5 mg PO DAILY Discharge Medication List Hydrochlorothiazide [Hydrodiuril] 12.5 mg PO DAILY 12/04/18 [History] Aspirin 81 mg PO DAILY #30 chew 12/07/18 [Rx] Atorvastatin [Lipitor] 80 mg PO HS #30 tab 12/07/18 [Rx] Metoprolol Tartrate [Lopressor] 12.5 mg PO DAILY #30 tab 12/07/18 [Rx] Nitroglycerin Sl Tabs [Nitrostat] 0.4 mg SUBLINGUAL Q5M PRN #25 tab 12/07/18 [Rx] Ticagrelor [Brilinta] 90 mg PO BID #60 tab 12/07/18 [Rx] Follow up Appointment(s)/Referral(s): Isaac Quesada DO [Primary Care Provider] - 12/14/18 9:20 am (In [place] office. ) Francis Pena MD [STAFF PHYSICIAN] - 12/15/18 9:15 am Patient Instructions/Handouts: Heart Healthy Diet (DC), Coronary Intravascular Stent Placement (DC) Activity/Diet/Wound Care/Special Instructions: Please discontinue brilinta after one month and start taking your plavix (clopidogrel) after. Instructions given in writing to patient about medication dosing for plavix.
--- NOTE | 2018-12-07 14:06 | P.PN ---
Subjective Progress Note Date: 12/07/18 This is an 78-year-old gentleman with no significant past medical history that presented to the hospital with symptoms of chest discomfort, he does have a history significant for hypertension. Patient was seen in consultation yesterday by Dr. Escalona and was advised to undergo cardiac catheterization, [facility] revealed a 70% stenosis in the mid LAD, subsequent to that patient underwent PTCA and stenting of the mid LAD by Dr. Mark Grace. Patient was seen and examined this morning, denied any chest pain or difficulty in breathing. Hemodynamically stable. EKG from this morning showed a normal sinus rhythm with no changes from post-PCI. Objective - Vital Signs Vital signs: Vital Signs Temp 98 F 12/07/18 07:27 Pulse 76 12/07/18 07:27 Resp 18 12/07/18 07:27 BP 133/77 12/07/18 07:27 Pulse Ox 96 12/07/18 07:27 Intake & Output 12/06/18 12/07/18 12/07/18 18:59 06:59 18:59 Intake Total 1336.3 Output Total 500 Balance 836.3 Weight 87.8 kg 87.8 kg Intake: IV 616.3 Sodium Chloride 0.9% 1, 0 000 ml @ 100 mls/hr IV . Q10H [facility] Rx#:[id number] Oral 720 Output: Urine 500 Other: Voiding Method Toilet Toilet # Voids 1 - Exam PHYSICAL EXAMINATION: GENERAL: 78-year-old gentleman in no acute distress at the time of my examination HEENT: Head is atraumatic, normocephalic. Pupils equal, round. Sclera anicteric. Conjunctiva are clear. Mucous membranes of the mouth are moist. Neck is supple. There is no elevated jugular venous pressure. No carotid bruit is heard. HEART EXAMINATION: Heart S1, S2 normal. No murmur or gallop heard. CHEST EXAMINATION: Lungs are clear to auscultation and precussion. No chest wall tenderness is noted on palpation or with deep breathing. ABDOMEN: Soft, nontender. Bowel sounds are heard. No organomegaly noted. EXTREMITIES: 2+ peripheral pulses with no evidence of peripheral edema and no calf tenderness noted. Right groin soft, no evidence of any hematoma. NEUROLOGIC patient is awake, alert and oriented 3 . . - Labs CBC & Chem 7: 12/07/18 05:49 12/07/18 05:49 Labs: Abnormal Lab Results - Last 24 Hours (Table) 12/07/18 12/07/18 Range/Units 05:49 05:49 RBC 4.15 L (4.30-5.90) m/uL Hct 38.7 L (39.0-53.0) % Chloride 110 H (98-107) mmol/L Assessment and Plan Plan: Assessment and plan #1 chest pain, status post angioplasty and stenting of the LAD #2 hypertension #3 hyperlipidemia Plan Patient may be able to be discharged home today from cardiology's perspective, we'll make a follow-up appointment with Dr. Escalona in the office in one week. Discharge medications include aspirin 81 mg daily, Lipitor 80 mg daily, Lopressor of 0.5 mg daily, Brilinta 90 mg one tablet by mouth twice a day which the patient will take for one month, at the end of that one month, patient will take a dose of 600 mg of Plavix and subsequent to that the next day started on 75 mg daily of Plavix. Sublingual nitroglycerin has also been provided.
== END 2018-12-07 13:25 | disposition home or self-care (01) | DRG 247 ==
LOC: EC 20:47 → 1SOBS 22:50 → 3SCARD 12-06 10:27 → OBSVTOIN 12-06 14:53
PROVIDERS: ADMIT Hospitalist; ATTEND Hospitalist
PROC: B2111ZZ Fluoroscopy of Multiple Coronary Arteries using Low Osmolar Contrast (ICD-10-PCS; 2018-12-06)
PROC: 027034Z Dilation of Coronary Artery, One Artery with Drug-eluting Intraluminal Device, Percutaneous Approach (ICD-10-PCS; principal; 2018-12-06 08:50)
PROC: 4A023N7 Measurement of Cardiac Sampling and Pressure, Left Heart, Percutaneous Approach (ICD-10-PCS; 2018-12-06 08:50)
DX: I25.110 Atherosclerotic heart disease of native coronary artery with unstable angina pectoris (principal); I10 Essential (primary) hypertension; E78.5 Hyperlipidemia, unspecified; Z79.899 Other long term (current) drug therapy; Z82.49 Family history of ischemic heart disease and other diseases of the circulatory system; Z83.3 Family history of diabetes mellitus
CPT/HCPCS: 36415; 71046; 80048; 80053; 80061; 83735; 84484; 85025; 85610; 85730; 93005; 93306; 93458; 99285; C1874

== ENCOUNTER → 2020-06-26 | Outpatient (CLI) | payer MEDICARE ==
--- NOTE | 2020-06-26 15:12 | US ---
EXAMINATION TYPE: US kidneys/renal and bladder DATE OF EXAM: 06/26/2020 COMPARISON: NONE CLINICAL HISTORY: N18.30 stage 3 chronic kidney, R60.9 edema. EXAM MEASUREMENTS: Right Kidney: 12.2 x 7.2 x 5.6 cm Left Kidney: 11.6 x 5.9 x 5.4 cm Post void residual: 1005ml Right Kidney: moderate hydro, anechoic structure with internal hyperechoic foci measuring 1.2 x 1.6 x 1.6cm Left Kidney: moderate hydro Bladder: irregular wall, diverticulum Gross Post Void Residual Volume. No nephrolithiasis is seen. No masses are identified. The urinary bladder is anechoic. Bilateral u reteral jets are seen. IMPRESSION: Moderate bilateral hydronephrosis and a 5
== END | disposition home or self-care (01) ==
LOC: RADUSWWP 12:57
PROVIDERS: ATTEND Family Medicine
DX: N13.30 Unspecified hydronephrosis (principal); N18.30 Chronic kidney disease, stage 3 unspecified
CPT/HCPCS: 76770

== ENCOUNTER → 2021-02-21 | Outpatient (CLI) | payer MEDICARE ==
--- NOTE | 2021-02-21 16:59 | US ---
EXAMINATION TYPE: US kidneys/renal and bladder DATE OF EXAM: 02/21/2021 COMPARISON: US 06/26/20, CT 06/13/12 CLINICAL HISTORY: R33.9 Retention of urine unspecified. EXAM MEASUREMENTS: Right Kidney: 11.3 x 5.7 x 5.2 cm Left Kidney: 10.6 x 5.6 x 5.1 cm Post Void Residual Volume: 84.2 mL Right Kidney: No hydronephrosis or renal calculi seen. Inferior/lateral cyst = 1.1 x 1.0 x 1.0 cm Left Kidney: No hydronephrosis or renal calculi seen Bladder: thick wall. Irregular wall anterior wall = 0.8 cm with bladder distended, 1.7 cm post void Bilateral Jets seen: Yes Normal Post Void Residual: No IMPRESSION: 1. The urinary bladder wall is thickened and irregular. On prevoid the urinary bladder wall measures 8 mm, which is thickened. On post void urinary bladder wall measures 1.7 cm, which is thickened. The bilateral ureteral jets are visualized. Large amount of post void urinary bladder residual. A CT urog mayte would be helpful for further evaluation. 2. No hydronephrosis or shadowing renal calculi are seen. 3. Inferior lateral right renal cyst measuring 1.1 cm.
== END | disposition home or self-care (01) ==
LOC: RADUSWWP 14:03
PROVIDERS: ATTEND Physician Assistant
DX: N28.1 Cyst of kidney, acquired (principal); N32.89 Other specified disorders of bladder
CPT/HCPCS: 76770

== ENCOUNTER 2022-01-03 17:32 | Emergency (ER) | payer MEDICARE ==
[2022-01-03 17:46] LABS: Glucose,Whole Blood 116 mg/dL (75-99)
[2022-01-03 17:51] VITALS: RESP 18; TEMP 97.8
--- NOTE | 2022-01-03 19:52 | ED ---
General Adult HPI - General Chief complaint: Syncope Stated complaint: Dizziness, near syncope Time Seen by Provider: 01/03/22 19:30 Source: patient, family, RN notes reviewed, old records reviewed Mode of arrival: wheelchair Limitations: no limitations - History of Present Illness Initial comments: This is an 81-year-old male who presents to the emergency department stating that he had an episode of dizziness while driving. Patient states he has a past medical history significant for vertigo. Patient states he has not seen but hasn't taken it in years. Patient states she was driving and all of a sudden he became very dizzy pulled over to the side of road and got to the back seat. Patient states while moving to the back seat became much more dizzy. Patient also states he was very nauseated but did not vomit. Patient states he had no chest pain or difficulty breathing or shortness of breath. Patient denies any palpitations. Patient denies any numbness or weakness. Patient denies any headache. Patient states the dizziness has subsided. Patient states this feels like the same type of dizziness he had when he was diagnosed with vertigo years ago. - Related Data Home Medications Medication Instructions Recorded Confirmed hydroCHLOROthiazide [Hydrodiuril] 12.5 mg PO DAILY 12/04/18 12/05/18 Previous Rx's Medication Instructions Recorded Aspirin 81 mg PO DAILY #30 chew 12/07/18 Atorvastatin [Lipitor] 80 mg PO HS #30 tab 12/07/18 Metoprolol Tartrate [Lopressor] 12.5 mg PO DAILY #30 tab 12/07/18 Nitroglycerin Sl Tabs [Nitrostat] 0.4 mg SUBLINGUAL Q5M PRN #25 tab 12/07/18 Ticagrelor [Brilinta] 90 mg PO BID #60 tab 12/07/18 Allergies Allergy/AdvReac Type Severity Reaction Status Date / Time No Known Allergies Allergy Verified 01/03/22 17:51 Review of Systems ROS Statement: Those systems with pertinent positive or pertinent negative responses have been documented in the HPI. ROS Other: All systems not noted in ROS Statement are negative. Past Medical History Past Medical History: Chest Pain / Angina, Hypertension History of Any Multi-Drug Resistant Organisms: None Reported Past Surgical History: Heart Catheterization With Stent Past Psychological History: No Psychological Hx Reported Smoking Status: Never smoker Past Alcohol Use History: None Reported, Rare Past Drug Use History: None Reported - Past Family History Mother Family Medical History: Diabetes Mellitus Father Family Medical History: Congestive Heart Failure (CHF) General Exam - General Exam Comments Initial Comments: GENERAL: Patient is well-developed and well-nourished. Patient is nontoxic and well- hydrated and is in no acute distress. ENT: Neck is soft and supple. No significant lymphadenopathy is noted. Oropharynx is clear. Moist mucous membranes. Neck has full range of motion without eliciting any pain. EYES: The sclera were anicteric and conjunctiva were pink and moist. Extraocular movements were intact and pupils were equal round and reactive to light. Eyelids were unremarkable. PULMONARY: Unlabored respirations. Good breath sounds bilaterally. No audible rales rhonchi or wheezing was noted. CARDIOVASCULAR: There is a regular rate and rhythm without any murmurs gallops or rubs. ABDOMEN: Soft and nontender with normal bowel sounds. SKIN: Skin is clear with no lesions or rashes and otherwise unremarkable. NEUROLOGIC: Patient is alert and oriented x3. Cranial nerves II through XII are grossly intact. Motor and sensory are also intact. Normal speech, volume and content. Symmetrical smile. Patient's finger-nose testing is equal bilaterally MUSCULOSKELETAL: Normal extremities with adequate strength and full range of motion. LYMPHATICS: No significant lymphadenopathy is noted PSYCHIATRIC: Normal psychiatric evaluation. Limitations: no limitations Course Vital Signs 01/03/22 17:47 Temperature 97.8 F Pulse Rate 65 Respiratory 18 Rate Blood Pressure 132/72 O2 Sat by Pulse 97 Oximetry Medical Decision Making - Medical Decision Making EKG shows sinus rhythm at 64 bpm OK interval 270 QRS is under 4 QT interval 414 QTC is 423 patient's EKG shows no ST segment elevation or depression. Chest x-ray shows no acute abnormality. Patient had no vertical while in the emergency department felt at his baseline and was comfortable going home. Patient states here he has meclizine at home - Lab Data Result diagrams: 01/03/22 20:05 01/03/22 20:06 Lab Results 01/03/22 01/03/22 01/03/22 Range/Units 17:45 20:05 20:05 WBC 15.8 H (3.8-10.6) k/uL RBC 4.78 (4.30-5.90) m/uL Hgb 14.9 (13.0-17.5) gm/dL Hct 44.8 (39.0-53.0) % MCV 93.6 (80.0-100.0) fL MCH 31.2 (25.0-35.0) pg MCHC 33.3 (31.0-37.0) g/dL RDW 13.1 (11.5-15.5) % Plt Count 282 (150-450) k/uL MPV 7.9 Neutrophils % 85 % Lymphocytes % 8 % Monocytes % 4 % Eosinophils % 1 % Basophils % 0 % Neutrophils # 13.4 H (1.3-7.7) k/uL Lymphocytes # 1.3 (1.0-4.8) k/uL Monocytes # 0.7 (0-1.0) k/uL Eosinophils # 0.2 (0-0.7) k/uL Basophils # 0.1 (0-0.2) k/uL Sodium (137-145) mmol/L Potassium (3.5-5.1) mmol/L Chloride (98-107) mmol/L Carbon Dioxide (22-30) mmol/L Anion Gap mmol/L BUN (9-20) mg/dL Creatinine (0.66-1.25) mg/dL Est GFR (CKD-EPI)AfAm (>60 ml/min/1.73 sqM) Est GFR (CKD-EPI)NonAf (>60 ml/min/1.73 sqM) Glucose (74-99) mg/dL POC Glucose (mg/dL) 116 H (75-99) mg/dL POC Glu Sample Book Maker ID Eduard, Mireille Calcium (8.4-10.2) mg/dL Magnesium (1.6-2.3) mg/dL Total Bilirubin (0.2-1.3) mg/dL AST (17-59) U/L ALT (4-49) U/L Alkaline Phosphatase (38-126) U/L Troponin I <0.012 (0.000-0.034) ng/mL Total Protein (6.3-8.2) g/dL Albumin (3.5-5.0) g/dL 01/03/22 Range/Units 20:06 WBC (3.8-10.6) k/uL RBC (4.30-5.90) m/uL Hgb (13.0-17.5) gm/dL Hct (39.0-53.0) % MCV (80.0-100.0) fL MCH (25.0-35.0) pg MCHC (31.0-37.0) g/dL RDW (11.5-15.5) % Plt Count (150-450) k/uL MPV Neutrophils % % Lymphocytes % % Monocytes % % Eosinophils % % Basophils % % Neutrophils # (1.3-7.7) k/uL Lymphocytes # (1.0-4.8) k/uL Monocytes # (0-1.0) k/uL Eosinophils # (0-0.7) k/uL Basophils # (0-0.2) k/uL Sodium 139 (137-145) mmol/L Potassium 4.6 (3.5-5.1) mmol/L Chloride 105 (98-107) mmol/L Carbon Dioxide 27 (22-30) mmol/L Anion Gap 7 mmol/L BUN 31 H (9-20) mg/dL Creatinine 1.30 H (0.66-1.25) mg/dL Est GFR (CKD-EPI)AfAm 59 (>60 ml/min/1.73 sqM) Est GFR (CKD-EPI)NonAf 51 (>60 ml/min/1.73 sqM) Glucose 123 H (74-99) mg/dL POC Glucose (mg/dL) (75-99) mg/dL POC Glu Sample Book Maker ID Calcium 8.8 (8.4-10.2) mg/dL Magnesium 1.9 (1.6-2.3) mg/dL Total Bilirubin 0.7 (0.2-1.3) mg/dL AST 28 (17-59) U/L ALT 30 (4-49) U/L Alkaline Phosphatase 122 (38-126) U/L Troponin I (0.000-0.034) ng/mL Total Protein 6.9 (6.3-8.2) g/dL Albumin 4.1 (3.5-5.0) g/dL Disposition Clinical Impression: Vertigo Disposition: HOME SELF-CARE Condition: Good Instructions (If sedation given, give patient instructions): Vertigo (ED) Is patient prescribed a controlled substance at d/c from ED?: No Referrals: Isaac Quesada DO [Primary Care Provider] - 1-2 days Time of Disposition: 20:48
[2022-01-03 20:19] LABS: Basophils # (A) 0.1 k/uL (0-0.2); Basophils % (A) 0 %; Eosinophils # (A) 0.2 k/uL (0-0.7); Eosinophils % (A) 1 %; HCT 44.8 % (39.0-53.0); HGB 14.9 gm/dL (13.0-17.5); Lymphocytes # (A) 1.3 k/uL (1.0-4.8); Lymphocytes % (A) 8 %; MCH 31.2 pg (25.0-35.0); MCHC 33.3 g/dL (31.0-37.0); MCV 93.6 fL (80.0-100.0); Mean Platelet Volume 7.9; Monocytes # (A) 0.7 k/uL (0-1.0); Monocytes % (A) 4 %; Neutrophils # (A) 13.4 k/uL (1.3-7.7); Neutrophils % (A) 85 %; Platelet Count 282 k/uL (150-450); RBC 4.78 m/uL (4.30-5.90); RDW 13.1 % (11.5-15.5); WBC 15.8 k/uL (3.8-10.6)
[2022-01-03 20:23] LABS: Albumin 4.1 g/dL (3.5-5.0); Calcium 8.8 mg/dL (8.4-10.2); Magnesium 1.9 mg/dL (1.6-2.3); Potassium 4.6 mmol/L (3.5-5.1); Total Bilirubin 0.7 mg/dL (0.2-1.3); Total Protein 6.9 g/dL (6.3-8.2)
--- NOTE | 2022-01-03 20:37 | XR ---
EXAMINATION TYPE: XR chest 2V DATE OF EXAM: 01/03/2022 8:14 PM COMPARISON: Chest radiographs from 12/04/2018 TECHNIQUE: XR chest 2V Frontal and lateral views of the chest. CLINICAL INDICATION:Male, 81 years old with history of Chest Pain; FINDINGS: Lungs/Pleura: Prominent interstitial lung markings are seen scattered throughout the lungs. No eviden ce of focal consolidation, pneumothorax or pleural effusion. Pulmonary vascularity: Unremarkable. Heart/mediastinum: Cardiomediastinal silhouette is unremarkable. Musculoskeletal: No acute osseous pathology. IMPRESSION: Chronic changes without acute pulmonary process. No significant change from prior.
[2022-01-03 21:26] VITALS: BP 134/77; PULSE 72
== END 2022-01-03 21:34 | disposition home or self-care (01) ==
LOC: EC 17:32
DX: R42 Dizziness and giddiness (principal); I10 Essential (primary) hypertension
CPT/HCPCS: 36415; 71046; 80053; 83735; 84484; 85025; 93005; 99285

== ENCOUNTER → 2022-05-05 | Outpatient (CLI) | payer MEDICARE ==
--- NOTE | 2022-05-05 14:05 | XR ---
EXAMINATION TYPE: XR chest 2V DATE OF EXAM: 05/05/2022 COMPARISON: Chest x-ray 01/03/2022 HISTORY: Cough TECHNIQUE: Frontal and lateral views of the chest are obtained. FINDINGS: The lung volumes are low. There is no focal air space opacity, pleural effusion, or pneumot horax seen. The cardiac silhouette size is within normal limits. The osseous structures are intact , there is thoracic spondylosis. IMPRESSION: No acute cardiopulmonary process.
== END | disposition home or self-care (01) ==
LOC: RADXRYALE 12:01
PROVIDERS: ATTEND Family Medicine
DX: R05.2 Subacute cough (principal); U09.9 Post COVID-19 condition, unspecified
CPT/HCPCS: 71046

== ENCOUNTER → 2023-06-23 | Outpatient (CLI) | payer MEDICARE ==
--- NOTE | 2023-06-23 10:01 | US ---
EXAMINATION TYPE: US abdomen comp/pelvis limited DATE OF EXAM: 06/23/2023 COMPARISON: Renal ultrasound 02/21/2021 CLINICAL INDICATION: Male, 82 years old with history of R10.817 abdom. tenderness R10.13 E11.69 I12.9 ; EXAM MEASUREMENTS: Liver Length: 16.3 cm Gallbladder Wall: 0.2 cm CBD: 0.8 cm Spleen: 11.3 cm Right Kidney: 10.9 x 6.1 x 5.1 cm Left Kidney: 10.8 x 6.2 x 5.3 cm Post Void Residual: Abnormal 150 mL Pancreas: WNL Liver: WNL Gallbladder: WNL CBD: Enlarged but normal for patient's age. Spleen: WNL Right Kidney: Prominent Renal Pelvis ? solid mass vs normal tissue = 1.5 x 1.7 x 1.8 cm Left Kidney: Prominent Renal Pelvis Upper IVC: WNL Abd Aorta: WNL Bladder: ? multiple ureteroceles seen. Wall = 0.5 cm Bilateral Jets Seen yes Normal Post Void Residual (normal less than 50ml) ABNORMAL = 150 ml The pancreas is within normal limits. The liver is unremarkable without focal lesion. Gallbladder is unremarkable without gallstones. Common bile duct is prominent size been over patient's age. Spleen i s within normal limits. No hydronephrosis. Bilateral prominent renal pelvises. Stable prominent colum n of [place] involving the left kidney. No nephrolithiasis. The upper IVC and abdominal aorta are with in normal limits. IMPRESSION: 1. No hydronephrosis or nephrolithiasis. 2. Bilateral ureteroceles with mild urinary bladder wall thickening. Abnormal post void residual. Co rrelate with urinalysis.
== END | disposition home or self-care (01) ==
LOC: RADUSWWP 08:53
PROVIDERS: ATTEND Family Medicine
DX: N32.89 Other specified disorders of bladder (principal); N28.89 Other specified disorders of kidney and ureter; E11.69 Type 2 diabetes mellitus with other specified complication; I12.9 Hypertensive chronic kidney disease with stage 1 through stage 4 chronic kidney disease, or unspecified chronic kidney disease; E11.22 Type 2 diabetes mellitus with diabetic chronic kidney disease; N18.9 Chronic kidney disease, unspecified; R10.13 Epigastric pain; R10.817 Generalized abdominal tenderness
CPT/HCPCS: 76700; 76857

== ENCOUNTER → 2023-07-31 | Outpatient (CLI) | payer MEDICARE ==
[2023-07-31 15:38] LABS: ALT 36 U/L (10-49); AST 24 U/L (14-35); Chol/HDL Ratio 2.32 Ratio; LDL Cholesterol,Calculated 47.8 mg/dL (0.0-131.0); VLDL Calculation 10.76 mg/dL (5.00-40.00)
== END | disposition home or self-care (01) ==
LOC: LABWHC1 09:08
PROVIDERS: ATTEND Internal Medicine Cardiovascular Disease
DX: E78.2 Mixed hyperlipidemia (principal)
CPT/HCPCS: 36415; 80061; 84450; 84460